=== PATIENT | female | born 1975 | race Asian ===

== ENCOUNTER 2018-04-10 22:10 | Emergency (ER) | payer OTHER ==
[~2018-04-10] VITALS: Ht 157.5 cm; Wt 59.0 kg
--- NOTE | 2018-04-10 22:59 | ED THROAT/DENTAL COMPLAINT ---
History of Present Illness General Chief Complaint: General Adult Stated Complaint: "A FISH BONE STUCK IN MY THROAT" Source: patient, family Exam Limitations: no limitations Vital Signs & Intake/Output Vital Signs & Intake/Output Vital Signs Date Time Temp Pulse Resp B/P B/P Pulse O2 O2 Flow FiO2 Mean Ox Delivery Rate 04/11 0130 96 16 116/75 99 Nasal 3.0L Cannula 04/10 2341 99 Room Air 04/10 2214 98.6 113 22 121/83 99 Room Air ED Intake and Output 04/11 0000 04/10 1200 Intake Total 0 Output Total Balance 0 Intake, Oral 0 Patient 130 lb Weight Allergies Coded Allergies: No Known Allergies (04/10/18) Reconcile Medications Pantoprazole Sodium (Protonix) 40 MG TABLET. 1 TAB PO BID ESOPHAGEAL INJURY Triage Note: PT TO TRIAGE C/O FISH BONE STUCK IN THROAT. PT SPEAKING IN CLEAR SENTENCES, SAT 99% RA. HR ELEVATED 113. NO ACUTE RESP DISTRESS NOTED. Triage Nurses Notes Reviewed? yes : No Patient currently breastfeeds: No HPI: Patient ate fish for dinner and feels a fishbone stuck in her throat. Patient states the pain is constant and increases when she swallows. Patient is able to swallow it just hurts do so. There is no radiation of the pain. Patient denies any fevers or chills. Patient has no other complaints. Past History Travel History Traveled to [place] past 21 day No Medical History Any Pertinent Medical History? none Neurological: NONE EENT: NONE Cardiovascular: NONE Respiratory: NONE Gastrointestinal: NONE Hepatic: NONE Renal: NONE Musculoskeletal: NONE Psychiatric: NONE Endocrine: NONE Blood Disorders: NONE Cancer(s): NONE MANAGER REAL ESTATE/Reproductive: NONE Surgical History Surgical History: non-contributory Psychosocial History What is your primary language Kiswahili Tobacco Use: Never used ETOH Use: occasional use Illicit Drug Use: denies illicit drug use Family History Hx Contributory? No Review of Systems Review of Systems Constitutional: Reports: no symptoms. EENTM: Reports: see HPI, throat pain. Respiratory: Reports: no symptoms. Cardiovascular: Reports: no symptoms. GI: Reports: no symptoms. Musculoskeletal: Reports: no symptoms. Neurological/Psychological: Reports: no symptoms. Immunologic/Allergic: Reports: no symptoms. Physical Exam Physical Exam General Appearance: well developed/nourished, alert, awake, anxious, moderate distress Head: atraumatic, normal appearance Eyes: Bilateral: PERRL, EOMI. Mouth/Throat: normal mouth inspection, pharynx normal Neck: normal inspection, supple, full range of motion Cardiovascular/Respiratory: normal breath sounds, normal peripheral pulses, regular rate/rhythm, no respiratory distress Neurologic/Psych: no motor/sensory deficits, awake, alert, oriented x 3, normal gait, normal mood/affect Core Measures ACS in differential dx? No Sepsis Present: No Sepsis Focused Exam Completed? No Progress Differential Diagnosis: pharyngeal for. body Plan of Care: Orders Procedure Date/time Status URINE 04/11 11 Complete Laboratory Tests 04/11/18 0014: Urine Test NEGATIVE Diagnostic Imaging: Viewed by Me: Radiology Read. Discussed w/RAD: Radiology Read. Radiology Impression: PATIENT: OANH BOCANEGRA PRESENT AGE: 43 PATIENT ACCOUNT NO: [id number] : 73 LOCATION: [facility] ORDERING PHYSICIAN: Steve Hwang MD SERVICE DATE: 04/10/18 EXAM TYPE: RAD - XRY-SOFT TISSUE NECK EXAMINATION: XR SOFT TISSUE NECK CLINICAL INDICATION: Fishbone feels stuck. COMPARISON: None TECHNIQUE: 2 views of the soft tissue neck were obtained. FINDINGS: There is a linear foreign body consistent with the history of a fishbone in the prevertebral soft tissues. This is in the cervical esophagus just anterior to the C7 vertebrae. This measures about 3 cm in length. No prevertebral soft tissue swelling. IMPRESSION: Linear foreign body consistent with a fishbone in the prevertebral soft tissues in the upper cervical esophagus.. DICTATED BY: Ernst Sloan MD DATE/TIME DICTATED:04/10/182336 CUSTOM DESIGNER:LORELEI DATE/TIME TRANSCRIBED:04/10/182336 CONFIDENTIAL, DO NOT COPY WITHOUT APPROPRIATE AUTHORIZATION. <Electronically signed in Other Vendor System> SIGNED BY: Ernst Sloan MD 04/10/18 9375 Comments: Discussed with Dr. Plata, she is going to come in to evaluate the patient. Departure Departure Disposition: HOME OR SELF CARE Condition: Stable Clinical Impression Primary Impression: Esophageal foreign body Referrals: Patient Has No Primary Care Dr (PCP/Family) Additional Instructions: Take Protonix as prescribed. Return if symptoms worsen or for any concerns. Departure Forms: Customer Survey General Discharge Information Prescriptions: Current Visit Scripts Pantoprazole Sodium (Protonix) 1 TAB PO BID #28 TAB
--- NOTE | 2018-04-10 23:42 | RADIOLOGY REPORT ---
EXAMINATION: XR SOFT TISSUE NECK CLINICAL INDICATION: Fishbone feels stuck. COMPARISON: None TECHNIQUE: 2 views of the soft tissue neck were obtained. FINDINGS: There is a linear foreign body consistent with the history of a fishbone in the prevertebral soft tissues. This is in the cervical esophagus just anterior to the C7 vertebrae. This measures about 3 cm in length. No prevertebral soft tissue swelling. IMPRESSION: Linear foreign body consistent with a fishbone in the prevertebral soft tissues in the upper cervical esophagus..
[2018-04-11] MEDS ORDERED: PROTONIX40 M3 PO (01:35)
--- NOTE | 2018-04-11 01:41 | Proc Note Endoscopy ---
Endoscopy Procedure Medical History: unchanged Mental Status: alert/oriented Heart/Lung Eval Prior to Sedation: within normal limits Candidate for Sedation? Yes Procedure Date: 04/11/18 Procedure Type: EGD for Foriegn Body Removal Director Health: MD Delgado Deborah E. ASA Classification: III Indications: Foreign body esophagus Instrument: diagnostic gastroscope Meds Received: General Endotracheal Anesthesia Patient's Tolerance: good Complications: none Extent Reached: second part of duodenum Procedure: Note: Informed consent was obtained prior to procedure. Risks and benefits of procedure were discussed with patient. Potential complications discussed included perforation, bleeding, abdominal pain, and adverse reaction to medications. It was explained that any or all of these complications could result in the need for extended hospitalization, emergency surgery, transfusion of packed red blood cells (with the risk of HIV or hepatitis virus), intubation with mechanical ventilation, and possible need for antibiotics. It was further explained that an existing tumor polyp or mucosal abnormality might not be identified at the time of the procedure thus resulting in a missed opportunity for early diagnosis and treatment of a gastrointestinal malignancy or disease with possible interval development of a gastrointestinal cancer or other disease with possible worsening of clinical condition in the interval between endoscopies. It was also discussed that complications are not limited to those listed above. Possible alternatives to endoscopic treatment or evaluation were discussed. All questions were answered. It was explained to the patient that without removal of the foreign body she was at risk for perforation of the esophagus by the fish bone. It was also explained that where she did develop esophageal obstruction due to this foreign body she was also at risk for aspiration. Continuous EKG and blood pressure monitors were attached. Supplemental oxygen was provided with O2 Sat monitoring. Patient was placed in the left lateral decubitus position. A surgical timeout was performed. All persons in the room were identified. All concerns were expressed and answered. The patient was sedated and intubated by anesthesia and anesthesia titrated to comfort prior to starting the procedure. A bite block was placed in the mouth after intubation. The Olympus upper endoscope was advanced under direct vision to the level of the duodenal bulb. Esophagus: The esophagus had a normal mucosal vascular pattern throughout its entirety. The GE junction was identified and was normal. The Z line was [id number]. There was scattered food debris throughout the esophagus which was easily washed into the stomach. There was no fishbone visible. There was mild erythema visible at the GE junction, but no ulceration or laceration. There was no esophageal obstruction due either to a ring or web. Stomach: The stomach had a moderate amount of undigested fibrous material and secretions in the fundus and in the antrum which could not be suctioned. An attempt was made to disrupt these phytobezoars without success and without locating the fishbone. There were scattered areas of erosion along the lesser curvature. The pylorus was patent and easily intubated. Duodenum: The duodenal bulb mucosa appeared normal, but there was also a moderate amount of partially digested food within the duodenum. This made passage of the endoscope beyond the bulb difficult. With the endoscope in the forward-viewing position, it was slowly withdrawn and all areas were re-inspected and findings are as described previously. Air and fluid was suctioned as the endoscope was withdrawn. Patient tolerated the procedure well. EBL: Minimal Specimens Removed: None Findings: Retained Food within Gastric Lumen Passage of Esophageal Foreign Body Impression: Retained Food within Gastric Lumen Passage of Esophageal Foreign Body Recommendations: 1. I discussed with Dr. Hwang that patient should be discharged on BID Protonix. 2. Patient was still intubated after the procedure and would be recovered by anesthesia. 3. Discharge planning would be done by ED.
[2018-04-11 05:18] VITALS: BP 121/86
== END 2018-04-11 05:31 ==
LOC: ERH 22:10
DX: T18.108A Unspecified foreign body in esophagus causing other injury, initial encounter (principal); X58.XXXA Exposure to other specified factors, initial encounter; Y93.89 Activity, other specified
CPT/HCPCS: 70360; 81025